=== PATIENT | female | born 1985 | race Caucasian/White ===

== ENCOUNTER 2020-02-10 21:51 | Emergency (ER) | payer SELFPAY ==
[~2020-02-10] VITALS: Ht 170.2 cm; Wt 83.2 kg
[2020-02-10] MEDS ORDERED: IBUPROFEN 800 MG TABLET ONE (22:21)
[2020-02-10] MEDS ORDERED: HALOPERIDOL 5 MG/ML ONE (22:21)
[2020-02-10] MEDS ORDERED: IBUPROFEN 800 MG TABLET PO ONE (22:30)
[2020-02-10] MEDS ORDERED: HALOPERIDOL 5 MG/ML IM ONE (22:30)
[2020-02-10 23:21] VITALS: BP 124/78
--- NOTE | 2020-02-10 23:21 | NUR ---
PT SLEEPING SOUNDLY POST MEDICATION. RESPIRATIONS EVEN AND UNLABORED. VITALS WNL. CALL LIGHT IN REACH.
--- NOTE | 2020-02-11 00:08 | NUR ---
PT CONTINUES TO SLEEP SOUNDLY. NADN. CALL LIGHT IN REACH. VITALS WNL.
== END 2020-02-11 00:35 | disposition home or self-care (01) ==
LOC: ED 02-11 00:31
DX: M79.672 Pain in left foot (principal); M79.671 Pain in right foot; F41.1 Generalized anxiety disorder; F15.129 Other stimulant abuse with intoxication, unspecified; L98.9 Disorder of the skin and subcutaneous tissue, unspecified; F17.200 Nicotine dependence, unspecified, uncomplicated; Z72.9 Problem related to lifestyle, unspecified
CPT/HCPCS: 96372; 99283; J1630

== ENCOUNTER 2020-03-05 14:05 | Emergency (ER) | payer MEDICAID, OTHER ==
[~2020-03-05] VITALS: Ht 170.2 cm; Wt 80.0 kg
[2020-03-05 14:34] VITALS: BP 120/80
--- NOTE | 2020-03-05 14:56 | NUR ---
TAX SPECIALIST: PT CALLED FOR ROOM, NO ANSWER
[2020-03-05] MEDS ORDERED: LIDOCAINE-MPF 1%, 5ML INFIL ONE (15:00)
[2020-03-05] MEDS ORDERED: PROPARACAINE OPHTH 0.5%, 15ML EACHEYE ONE (15:00)
--- NOTE | 2020-03-05 15:58 | NUR ---
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
[2020-03-05] MEDS ORDERED: LIDOCAINE-MPF 1%, 5ML ONE (17:00)
[2020-03-05] MEDS ORDERED: DIPH,PERTUSS(ACELL),TET VAC/PF 0.5 ML IM-VACC ONE (17:00)
[2020-03-05] MEDS ORDERED: NEOSPORIN OINT. PKT 1 PACKET ONE ×2 (17:00→18:28)
[2020-03-05] MEDS ORDERED: FLUORESCEIN OPHTHALMIC 1 MG STRIP EACHEYE ONE (17:00)
--- NOTE | 2020-03-05 17:04 | NUR ---
MEDICATED PER EMAR (TDAP, LIDOCAINE FOR PROVIDER ANESTHESIA, PROPARACAINE FOR EYE EXAM)
--- NOTE | 2020-03-05 17:12 | NUR ---
PROVIDER TO BEDSIDE TO LONNIE RUE ABSCESS
[2020-03-05] MEDS ORDERED: SULFAMETH./TRIMETHOPRIM DS 800MG/160MG TABLET ONE (18:13)
[2020-03-05] MEDS ORDERED: CEPHALEXIN 500 MG CAPSULE ONE (18:13)
[2020-03-05] MEDS ORDERED: IBUPROFEN 600 MG TABLET ONE (18:13)
[2020-03-05] MEDS ORDERED: ERYTHROMYCIN OPHTH 0.5%, 1GM LEFTEYE ONE (18:30)
[2020-03-05] MEDS ORDERED: SULFAMETH./TRIMETHOPRIM DS 800MG/160MG TABLET PO ONE (18:30)
[2020-03-05] MEDS ORDERED: CEPHALEXIN 500 MG CAPSULE PO ONE (18:30)
[2020-03-05] MEDS ORDERED: IBUPROFEN 600 MG TABLET PO ONE (18:30)
== END 2020-03-05 18:25 | disposition home or self-care (01) ==
LOC: ED 18:15
DX: S61.412A Laceration without foreign body of left hand, initial encounter (principal); S93.402A Sprain of unspecified ligament of left ankle, initial encounter; L02.413 Cutaneous abscess of right upper limb; H10.022 Other mucopurulent conjunctivitis, left eye; M25.572 Pain in left ankle and joints of left foot; W26.8XXA Contact with other sharp object(s), not elsewhere classified, initial encounter; Y93.39 Activity, other involving climbing, rappelling and jumping off; Y92.89 Other specified places as the place of occurrence of the external cause; Y99.8 Other external cause status
CPT/HCPCS: 10060; 90471; 90715; 99284

== ENCOUNTER 2020-03-07 12:36 | Emergency (ER) | payer MEDICAID ==
[~2020-03-07] VITALS: Ht 170.2 cm; Wt 81.0 kg
[2020-03-07 12:37] VITALS: BP 131/86
[2020-03-07] MEDS ORDERED: PROPARACAINE OPHTH 0.5%, 15ML EACHEYE ONE (13:00)
[2020-03-07] MEDS ORDERED: FLUORESCEIN OPHTHALMIC 1 MG STRIP EACHEYE ONE (13:00)
[2020-03-07] MEDS ORDERED: PROPARACAINE OPHTH 0.5%, 15ML ONE (13:10)
[2020-03-07] MEDS ORDERED: FLUORESCEIN OPHTHALMIC 1 MG STRIP ONE (13:10)
== END 2020-03-07 13:36 | disposition home or self-care (01) ==
LOC: ED 12:48
DX: H10.023 Other mucopurulent conjunctivitis, bilateral (principal); L02.413 Cutaneous abscess of right upper limb; F17.210 Nicotine dependence, cigarettes, uncomplicated; Z59.0 Homelessness
CPT/HCPCS: 99283; 99406

== ENCOUNTER 2020-03-12 01:35 | Emergency (ER) | payer MEDICAID ==
[~2020-03-12] VITALS: Ht 170.2 cm; Wt 83.9 kg
[2020-03-12 01:36] VITALS: BP 126/76
== END 2020-03-12 03:56 | disposition left against medical advice (07) ==
LOC: ED 01:38
DX: H57.13 Ocular pain, bilateral (principal); Z53.21 Procedure and treatment not carried out due to patient leaving prior to being seen by health care provider